=== PATIENT | male | born 1985 | race Caucasian/White ===

== ENCOUNTER 2017-06-20 18:44 | Inpatient (IN) | payer OTHER ==
[2017-06-20] MEDS ORDERED: GLUCAGON 1 MG INJ IM (21:00)
[2017-06-20] MEDS ORDERED: GLUCOSE GEL 15 GRAM TUBE PO ×2 (21:00)
[2017-06-20] MEDS ORDERED: DEXTROSE 50% 50 ML SYRINGE IV ×2 (21:00)
[2017-06-20] MEDS ORDERED: GLUCOSE GEL 15 GRAM TUBE BUCCAL (21:00)
[2017-06-20] MEDS: OLANZAPINE 5 MG TAB PO ×2 (21:00→23:34)
[2017-06-20] MEDS ORDERED: IPRATROPIUM (NEB) 0.5 MG/2.5 ML AMP HHN ×2 (21:00)
[2017-06-20] MEDS: INSULIN ASPART [NOVOLOG] 3 ML PEN SC (21:00)
[2017-06-20] MEDS ORDERED: MAGNESIUM HYDROXIDE 30ML CUP PO (22:00)
[2017-06-20] MEDS ORDERED: DOCUSATE SODIUM 100 MG CAP PO (22:00)
[2017-06-20] MEDS ORDERED: NACL 0.9% 3 ML SYG IV (22:00)
[2017-06-20] MEDS ORDERED: ACETAMINOPHEN 650 MG SUPP PR (22:00)
[2017-06-20] MEDS ORDERED: BISACODYL (EC) 5 MG TAB PO (22:00)
[2017-06-20] MEDS ORDERED: ONDANSETRON 4 MG INJ IV (22:00)
[2017-06-20] MEDS ORDERED: ALBUTEROL/IPRATROPIUM (NEB) 3 ML AMP HHN (23:30)
[2017-06-20] MEDS: DIVALPROEX (EC) 500 MG TAB PO (23:33)
[2017-06-21] MEDS ORDERED: ALBUTEROL/IPRATROPIUM (NEB) 3 ML AMP HHN (01:00)
[2017-06-21] MEDS: ALBUTEROL/IPRATROPIUM (NEB) 3 ML AMP HHN ×4 (01:14→19:21)
[2017-06-21] MEDS ORDERED: ACCU-CHEK XX ×2 (02:00)
[2017-06-21] MEDS: ACCU-CHEK XX (02:00)
[2017-06-21] MEDS: PANTOPRAZOLE (EC) 40 MG TAB PO (06:14)
[2017-06-21] MEDS: INSULIN ASPART [NOVOLOG] 3 ML PEN SC ×4 (07:55→21:00)
[2017-06-21] MEDS: DIVALPROEX (EC) 500 MG TAB PO ×2 (08:51→21:56)
[2017-06-21] MEDS: METOPROLOL 25 MG TAB PO (08:52)
[2017-06-21] MEDS ORDERED: DIVALPROEX (EC) 500 MG TAB PO (09:00)
[2017-06-21] MEDS: ENOXAPARIN 40 MG/0.4 ML SYG SC (09:17)
[2017-06-21] MEDS: ASPIRIN (EC) 81 MG TAB PO (09:25)
[2017-06-21 13:08] LABS: ADD MAN DIFF? NO
[2017-06-21 13:14] LABS: BASOPHIL # 0.1 10^3/ul (0.0-0.1); BASOPHILS % 0.7 % (0.0-2.0); EOSINOPHILS # 0.3 10^3/ul (0.0-0.5); EOSINOPHILS % 2.9 % (0.0-7.0); HEMATOCRIT 48.7 % (42.0-52.0); HEMOGLOBIN 14.8 g/dl (14.0-18.0); LYMPHOCYTES # 2.2 10^3/ul (0.8-2.9); LYMPHOCYTES % 21.3 % (15.0-51.0); MEAN CORPUSCULAR HEMOGLOBIN 29.7 pg (29.0-33.0); MEAN CORPUSCULAR HGB CONC 30.4 g/dl (32.0-37.0); MEAN CORPUSCULAR VOLUME 97.6 fl (82.0-101.0); MEAN PLATELET VOLUME 10.1 fl (7.4-10.4); MONOCYTE # 0.5 10^3/ul (0.3-0.9); MONOCYTES % 5.1 % (0.0-11.0); NEUTROPHILS % 69.4 % (39.0-77.0); PLATELET COUNT 241 10^3/UL (140-415); RED BLOOD COUNT 4.99 10^6/ul (4.70-6.10); RED CELL DISTRIBUTION WIDTH 13.7 % (11.5-14.5)
[2017-06-21 13:14] LABS: WHITE BLOOD COUNT 10.1 10^3/ul (4.8-10.8)
[2017-06-21 13:26] LABS: HEMOGLOBIN A1C 5.3 % (0-5.9)
[2017-06-21 13:32] LABS: ANION GAP 13 (8-16); BLOOD UREA NITROGEN 15 mg/dl (7-20); CALCIUM 9.2 mg/dl (8.4-10.2); CARBON DIOXIDE 36 mmol/L (21-31); CHLORIDE 99 mmol/L (97-110); CREATININE 0.64 mg/dl (0.61-1.24); GLUCOSE 91 mg/dl (70-220); POTASSIUM 4.4 mmol/L (3.5-5.1); SODIUM 144 mmol/L (135-144)
[2017-06-21] MEDS: NICOTINE (21 MG/24 HR) PATCH TRANSDERM (15:22)
[2017-06-21] MEDS: OLANZAPINE 5 MG TAB PO (21:55)
[2017-06-21] MEDS: CITALOPRAM 20 MG TAB PO (21:56)
[2017-06-21] MEDS: ACETAMINOPHEN 325 MG TAB PO (21:56)
[2017-06-22] MEDS: ALBUTEROL/IPRATROPIUM (NEB) 3 ML AMP HHN ×3 (01:03→13:13)
[2017-06-22] MEDS: ACCU-CHEK XX (01:36)
[2017-06-22] MEDS: PANTOPRAZOLE (EC) 40 MG TAB PO (06:09)
[2017-06-22] MEDS: INSULIN ASPART [NOVOLOG] 3 ML PEN SC ×3 (07:55→17:37)
[2017-06-22] MEDS: METOPROLOL 25 MG TAB PO (08:08)
[2017-06-22] MEDS: ASPIRIN (EC) 81 MG TAB PO (08:08)
[2017-06-22] MEDS: NICOTINE (21 MG/24 HR) PATCH TRANSDERM (08:39)
[2017-06-22] MEDS: DIVALPROEX (EC) 500 MG TAB PO (08:39)
[2017-06-22] MEDS: ENOXAPARIN 40 MG/0.4 ML SYG SC (08:41)
== END 2017-06-22 18:36 | disposition home or self-care (01) | DRG 189 ==
LOC: TEL 18:44
PROVIDERS: Internal Medicine Nephrology
DX: J96.92 Respiratory failure, unspecified with hypercapnia (principal); Z68.44 Body mass index [BMI] 60.0-69.9, adult; E66.01 Morbid (severe) obesity due to excess calories; G47.30 Sleep apnea, unspecified; E11.9 Type 2 diabetes mellitus without complications; F25.9 Schizoaffective disorder, unspecified; Z72.0 Tobacco use; I10 Essential (primary) hypertension
CPT/HCPCS: 80048; 82962; 83036; 85025; 94640; 94660; 94664

== ENCOUNTER 2017-08-22 15:15 | Inpatient (IN) | payer OTHER ==
[2017-08-22] MEDS ORDERED: ALBUTEROL/IPRATROPIUM (NEB) 3 ML AMP NEB (16:30)
[2017-08-22] MEDS ORDERED: DOCUSATE SODIUM 100 MG CAP PO (17:30)
[2017-08-22] MEDS ORDERED: BISACODYL (EC) 5 MG TAB PO (17:30)
[2017-08-22] MEDS ORDERED: ACETAMINOPHEN 650 MG SUPP PR (17:30)
[2017-08-22] MEDS ORDERED: MAGNESIUM HYDROXIDE 30ML CUP PO (17:30)
[2017-08-22] MEDS ORDERED: NACL 0.9% 3 ML SYG IV (17:30)
[2017-08-22] MEDS ORDERED: ONDANSETRON 4 MG INJ IV (17:30)
[2017-08-22] MEDS: DIVALPROEX (EC) 250 MG TAB PO (20:50)
[2017-08-22] MEDS: CITALOPRAM 20 MG TAB PO (20:50)
[2017-08-22] MEDS: OLANZAPINE 5 MG TAB PO (20:50)
[2017-08-22] MEDS: METHYLPREDNISOLONE 40 MG INJ IV (20:50)
[2017-08-22] MEDS: PANTOPRAZOLE 40 MG INJ IV (20:50)
[2017-08-23] MEDS: PANTOPRAZOLE 40 MG INJ IV (05:47)
[2017-08-23 09:42] LABS: HEMOGLOBIN A1C 5.8 % (0-5.9)
[2017-08-23] MEDS: OLANZAPINE 5 MG TAB PO ×2 (09:43→20:13)
[2017-08-23] MEDS: NICOTINE (21 MG/24 HR) PATCH TRANSDERM (09:43)
[2017-08-23] MEDS: METHYLPREDNISOLONE 40 MG INJ IV (09:43)
[2017-08-23] MEDS: ASPIRIN (EC) 81 MG TAB PO (09:43)
[2017-08-23] MEDS: DIVALPROEX (EC) 250 MG TAB PO ×2 (09:43→20:13)
[2017-08-23] MEDS: METOPROLOL 25 MG TAB PO (09:44)
[2017-08-23] MEDS: ENOXAPARIN 40 MG/0.4 ML SYG SC (09:48)
[2017-08-23] MEDS: CITALOPRAM 20 MG TAB PO (20:13)
[2017-08-24] MEDS: PANTOPRAZOLE 40 MG INJ IV (05:27)
[2017-08-24 06:14] LABS: ADD MAN DIFF? NO
[2017-08-24 06:26] LABS: WHITE BLOOD COUNT 11.1 10^3/ul (4.8-10.8)
[2017-08-24 06:26] LABS: ABNORMAL IP MESSAGE 1; BASOPHILS % 0.3 % (0.0-2.0); EOSINOPHILS # 0.2 10^3/ul (0.0-0.5); EOSINOPHILS % 1.4 % (0.0-7.0); HEMATOCRIT 52.5 % (42.0-52.0); HEMOGLOBIN 15.1 g/dl (14.0-18.0); LYMPHOCYTES # 3.7 10^3/ul (0.8-2.9); LYMPHOCYTES % 33.7 % (15.0-51.0); MEAN CORPUSCULAR HGB CONC 28.8 g/dl (32.0-37.0); MEAN CORPUSCULAR VOLUME 97.4 fl (82.0-101.0); MEAN PLATELET VOLUME 10.3 fl (7.4-10.4); MONOCYTE # 0.8 10^3/ul (0.3-0.9); NEUTROPHIL # 6.3 10^3/ul (1.6-7.5); NEUTROPHILS % 57.1 % (39.0-77.0); PLATELET COUNT 219 10^3/UL (140-415); POSITIVE DIFF @See below; RED BLOOD COUNT 5.39 10^6/ul (4.70-6.10); RED CELL DISTRIBUTION WIDTH 14.4 % (11.5-14.5)
[2017-08-24 07:00] LABS: ANION GAP 12 (8-16); BLOOD UREA NITROGEN 23 mg/dl (7-20); CALCIUM 8.7 mg/dl (8.4-10.2); CHLORIDE 94 mmol/L (97-110); CREATININE 0.68 mg/dl (0.61-1.24); GLUCOSE 112 mg/dl (70-220); POTASSIUM 4.1 mmol/L (3.5-5.1); SODIUM 142 mmol/L (135-144)
[2017-08-24 07:16] LABS: CARBON DIOXIDE 40 mmol/L (21-31)
[2017-08-24] MEDS: NICOTINE (21 MG/24 HR) PATCH TRANSDERM (09:04)
[2017-08-24] MEDS: predniSONE 20 MG TAB PO (09:05)
[2017-08-24] MEDS: DIVALPROEX (EC) 250 MG TAB PO ×2 (09:05→20:14)
[2017-08-24] MEDS: ASPIRIN (EC) 81 MG TAB PO (09:05)
[2017-08-24] MEDS: METOPROLOL 25 MG TAB PO (09:06)
[2017-08-24] MEDS: OLANZAPINE 5 MG TAB PO ×2 (09:06→20:14)
[2017-08-24] MEDS: ENOXAPARIN 40 MG/0.4 ML SYG SC (09:16)
[2017-08-24] MEDS: ACETAMINOPHEN 325 MG TAB PO (14:12)
[2017-08-24] MEDS: LEVOFLOXACIN 500 MG TAB PO (14:12)
[2017-08-24 15:21] LABS: Allen Test ACCEPTAB; Arterial Base Excess 8.9 mmol/L (-3.0-3); Arterial Blood Gas Oxygen Sat 97.1 mmHG (95.0-98.0); Arterial COHb 1.1 % (0.0-3.0); Arterial Fraction of Oxyhgb 95.6 % (93.0-99.0); Arterial HCO3 37.6 mmol/L (22.0-26.0); Arterial MetHb 0.4 % (0.0-1.5); Arterial Total Hemglobin 16.9 g/dl (12.0-18.0); MODE NASAL CANNULA; Site Right Radial
[2017-08-24] MEDS: CITALOPRAM 20 MG TAB PO (20:14)
[2017-08-25] MEDS: LEVOFLOXACIN 500 MG TAB PO (05:26)
[2017-08-25] MEDS: PANTOPRAZOLE (EC) 40 MG TAB PO (05:26)
[2017-08-25 07:16] LABS: ADD MAN DIFF? NO
[2017-08-25 07:21] LABS: BASOPHILS % 0.3 % (0.0-2.0); EOSINOPHILS # 0.3 10^3/ul (0.0-0.5); EOSINOPHILS % 2.3 % (0.0-7.0); HEMATOCRIT 54.3 % (42.0-52.0); MEAN CORPUSCULAR HEMOGLOBIN 28.5 pg (29.0-33.0); MEAN CORPUSCULAR HGB CONC 29.5 g/dl (32.0-37.0); MEAN CORPUSCULAR VOLUME 96.8 fl (82.0-101.0); MEAN PLATELET VOLUME 10.5 fl (7.4-10.4); MONOCYTE # 0.8 10^3/ul (0.3-0.9); MONOCYTES % 6.2 % (0.0-11.0); NEUTROPHIL # 7.2 10^3/ul (1.6-7.5); NEUTROPHILS % 58.4 % (39.0-77.0); PLATELET COUNT 227 10^3/UL (140-415); RED BLOOD COUNT 5.61 10^6/ul (4.70-6.10); RED CELL DISTRIBUTION WIDTH 14.1 % (11.5-14.5)
[2017-08-25 07:21] LABS: WHITE BLOOD COUNT 12.4 10^3/ul (4.8-10.8)
[2017-08-25 07:54] LABS: ANION GAP 14 (8-16); BLOOD UREA NITROGEN 19 mg/dl (7-20); CALCIUM 8.9 mg/dl (8.4-10.2); CARBON DIOXIDE 37 mmol/L (21-31); CHLORIDE 97 mmol/L (97-110); CREATININE 0.61 mg/dl (0.61-1.24); GLUCOSE 102 mg/dl (70-220); POTASSIUM 4.2 mmol/L (3.5-5.1); SODIUM 144 mmol/L (135-144)
[2017-08-25] MEDS: ASPIRIN (EC) 81 MG TAB PO (09:04)
[2017-08-25] MEDS: DIVALPROEX (EC) 250 MG TAB PO (09:04)
[2017-08-25] MEDS: predniSONE 20 MG TAB PO (09:05)
[2017-08-25] MEDS: OLANZAPINE 5 MG TAB PO (09:05)
[2017-08-25] MEDS: METOPROLOL 25 MG TAB PO (09:05)
[2017-08-25] MEDS: NICOTINE (21 MG/24 HR) PATCH TRANSDERM (09:05)
[2017-08-25] MEDS: ENOXAPARIN 40 MG/0.4 ML SYG SC (09:06)
== END 2017-08-25 18:10 | disposition home health service (06) | DRG 190 ==
LOC: TEL 15:15
PROVIDERS: Internal Medicine
PROC: 4A033R1 Measurement of Arterial Saturation, Peripheral, Percutaneous Approach (ICD-10-PCS; principal; 2017-08-24)
DX: J44.1 Chronic obstructive pulmonary disease with (acute) exacerbation (principal); J96.01 Acute respiratory failure with hypoxia; E66.2 Morbid (severe) obesity with alveolar hypoventilation; Z68.44 Body mass index [BMI] 60.0-69.9, adult; E87.2 Acidosis; J98.11 Atelectasis; I10 Essential (primary) hypertension; E11.9 Type 2 diabetes mellitus without complications; F25.9 Schizoaffective disorder, unspecified; G47.10 Hypersomnia, unspecified; F17.210 Nicotine dependence, cigarettes, uncomplicated; Z79.82 Long term (current) use of aspirin; Z91.19 Patient's noncompliance with other medical treatment and regimen
CPT/HCPCS: 36600; 71045; 80048; 82803; 83036; 85025; 94660